=== PATIENT | female | born 1945 | race Asian ===

== ENCOUNTER → 2016-10-09 | Outpatient (CLI) | payer OTHER ==
[~2016-10-09] MED LIST: ACET-784 PO; AMLO-512 PO; ATOR20TA86 PO; BIMA12.5OS OU; CLOP75 PO; DORZ210OS OU; LEVO25TA9 PO; LOSA50TA37 PO; METF500T4 PO; METO25 PO; MULT-71 PO; OMEG-12 PO; SITA50 PO; TIOT4MIS5 PO
== END | disposition home or self-care (01) ==
LOC: RADPV 09:35
PROVIDERS: ATTEND Internal Medicine
DX: I70.0 Atherosclerosis of aorta (principal)
CPT/HCPCS: 93925

== ENCOUNTER 2017-01-24 07:38 | Day surgery (SDC) | payer OTHER ==
[~2017-01-24] VITALS: Ht 152.4 cm; Wt 46.8 kg
[~2017-01-24 07:38] MED LIST changes: -ACET-784 PO; -MULT-71 PO; -OMEG-12 PO
[2017-01-24] MEDS ORDERED: SODIUM CHLORIDE 0.9% 1,000 ML IV ONE ×2 (08:00)
[2017-01-24] MEDS ORDERED: ACET-784 PO (08:26)
[2017-01-24] MEDS ORDERED: MULT-71 PO (08:26)
[2017-01-24] MEDS ORDERED: OMEG-12 PO (08:26)
[2017-01-24 08:44] LABS: BASOPHILS # (AUTO) 0.03 K/uL (0.00-0.20); BASOPHILS % (AUTO) 0.4 % (0.0-2.0); EOSINOPHILS # (AUTO) 0.61 K/uL (0.00-0.70); EOSINOPHILS % (AUTO) 7.68 % (1.0-6.0); HEMATOCRIT 36.4 % (36-46); HEMOGLOBIN 11.3 g/dL (12.0-16.0); LYMPHOCYTES # (AUTO) 1.5 K/uL (1.0-4.8); LYMPHOCYTES % (AUTO) 19.3 % (22.0-44.0); MEAN CORPUSCULAR HEMOGLOBIN 20.9 pg (26.0-34.0); MEAN CORPUSCULAR HGB CONC 31.1 G/dL (31.0-37.0); MEAN CORPUSCULAR VOLUME 67 fL (80-100); MONOCYTES # (AUTO) 0.5 K/uL (0.1-1.0); MONOCYTES % (AUTO) 5.6 % (2.0-9.0); NEUTROPHILS # (AUTO) 5.4 K/uL (1.8-7.7); PLATELET COUNT (AUTO) 280 K/uL (150-450); RED CELL DISTRIBUTION WIDTH 16.9 % (11.5-14.5)
[2017-01-24 08:47] LABS: ANION GAP 11 mmol/L (8-16); CARBON DIOXIDE 26 mmol/L (22-29); CHLORIDE 105 mmol/L (98-107); GLOMERULAR FILTR. RATE CALC > 60 mL/min (>60); POTASSIUM 4.8 mmol/L (3.5-5.1); SODIUM SERUM 142 mmol/L (136-145); UREA NITROGEN, BLOOD 17 mg/dL (7-18)
[2017-01-24 08:50] LABS: INR 0.9 (0.9-1.1); PROTHROMBIN TIME 9.9 SEC (9.4-11.6)
[2017-01-24 08:53] LABS: ALANINE AMINOTRANSFERASE 67 U/L (12-78); ALBUMIN 4.4 g/dL (3.4-5.0); ASPARTATE AMINOTRANSFERASE 44 U/L (15-37); BILIRUBIN,TOTAL 0.5 mg/dL (0.1-1.0); TOTAL PROTEIN, SERUM 7.8 g/dL (6.4-8.2)
[2017-01-24 09:22] LABS: RBC MORPHOLOGY COMMENT ABNORMAL RBC MORPH
[2017-01-24] MEDS ORDERED: HEPARIN SODIUM 1000 UNITS/NS 500 ML ONE (10:36)
[2017-01-24] MEDS ORDERED: MIDAZOLAM HCL 2 MG/2 ML VIAL ONE (10:36)
[2017-01-24] MEDS ORDERED: IOHEXOL 300 MG/ML 150 ML VIAL ONE ×2 (10:36→11:09)
[2017-01-24] MEDS ORDERED: FentaNYL CITRATE-PF 100 MCG/2 ML VIAL ONE (10:36)
[2017-01-24] MEDS ORDERED: SODIUM BICARBONATE 50 MEQ/50 ML VIAL ONE (10:36)
[2017-01-24] MEDS ORDERED: LIDOCAINE HCL/PF 1% 30 ML VIAL ONE (10:36)
[2017-01-24 10:48] VITALS: BP 154/67
[2017-01-24] MEDS ORDERED: FentaNYL CITRATE-PF 100 MCG/2 ML VIAL IVP ONE (10:56)
[2017-01-24] MEDS ORDERED: MIDAZOLAM HCL 2 MG/2 ML VIAL IVP ONE (10:56)
[2017-01-24] MEDS ORDERED: IOHEXOL 300 MG/ML 100 ML VIAL ONE (10:56)
[2017-01-24] MEDS ORDERED: LIDOCAINE 1% 30 ML/SOD BICARB 8.4% 4 ML SQ ONE (11:00)
[2017-01-24] MEDS ORDERED: HEPARIN SODIUM 1000 UNITS/NS 500 ML IARTER ONE (11:00)
[2017-01-24] MEDS ORDERED: IOHEXOL 300 MG/ML 100 ML VIAL IARTER ONE (11:10)
[2017-01-24] MEDS ORDERED: IOHEXOL 300 MG/ML 150 ML VIAL IARTER ONE (11:10)
[2017-01-24 11:58] VITALS: BP 136/61
== END 2017-01-24 16:45 | disposition home or self-care (01) ==
LOC: UNDOADMIN 07:38 → 5S 07:38 → SDS 07:38 → EDSTATUS 09:00 → UNDODISIN 15:41 → SDS 16:45
PROVIDERS: ATTEND Internal Medicine Cardiovascular Disease
DX: I70.202 Unspecified atherosclerosis of native arteries of extremities, left leg (principal); E11.39 Type 2 diabetes mellitus with other diabetic ophthalmic complication; H40.9 Unspecified glaucoma; I10 Essential (primary) hypertension; E78.00 Pure hypercholesterolemia, unspecified; Z79.01 Long term (current) use of anticoagulants
CPT/HCPCS: 36247; 36415; 75625; 75716; 80053; 85025; 85610; 85730; 93005; 99152; 99153; C1760; C1892; J1644; J2250; J3010; J3490 ×2; J7030; Q9967 ×2; 36200; 75630